=== PATIENT | male | born 1980 | race Caucasian/White ===

== ENCOUNTER 2024-01-23 08:01 | Emergency (ER) | payer BC, SELFPAY ==
[2024-01-23 08:11] VITALS: BP 151/106; PULSE 91; RESP 16; TEMP 37.1; O2SAT 100
--- NOTE | 2024-01-23 08:12 | ED.DENTAL ---
HPI - Dental/Oral General Chief complaint: Dental/Oral Stated complaint: swelling on left side face History of Present Illness HPI Narrative: Patient presents with right-sided tooth pain. No trouble swallowing no drooling slight facial swelling. No fever no body aches has not seen a dentist in quite some time. Related Data Home Medications Medication Instructions Recorded Confirmed clonazepam 0.5 mg tablet mg 01/23/24 escitalopram oxalate 20 mg tablet mg 01/23/24 oxcarbazepine 300 mg tablet mg 01/23/24 quetiapine 100 mg tablet mg 01/23/24 quetiapine 400 mg tablet mg 01/23/24 Allergies Allergy/AdvReac Type Severity Reaction Status Date / Time Penicillins Allergy Fever Verified 01/23/24 08:11 Review of Systems Review of Systems: CONSTITUTIONAL: Denies fever, chills, or sweats. EYES: Denies visual changes, redness, or discharge. ENT: Denies rhinorrhea, congestion, sore throat, or otalgia. CARDIOVASCULAR: Denies chest pain, palpitations, or edema. RESPIRATORY: Denies cough or dyspnea. GASTROINTESTINAL: Denies abdominal pain, nausea, vomiting, or diarrhea. GENITOURINARY: Denies dysuria or hematuria. SKIN: Denies rash or itching. MUSCULOSKELETAL: Denies back pain, joint pain, or myalgia. NEUROLOGIC: Denies headache, numbness, or weakness. PSYCHIATRIC: Denies anxiety or depression. PMFSH Comments At time of signature, agree with nursing past medical, surgical, social and family history. There is no relevant family history pertinent to the presenting complaint Exam Narrative: GENERAL: Well-appearing, well-nourished, and in no acute distress. HEAD: Normocephalic, atraumatic. EYES: PERRLA and EOMI. ENT: Nares clear, no rhinorrhea or epistaxis. Mucous membranes moist. NO JOURDAN APICAL SWELLING, TOOTH TENDER TO PALPATION. NO FACIAL SWELLING. NO TRISMUS. ABLE TO OPEN MOUTH FULLY. NO NECK SWELLING OR HORTENSIA'S ANGINA. NO ABSCESS TO BE DRAINED. no drooling, trismus, facial asymmetry or significant neck swelling tooth 18. NECK: Supple. CHEST: Clear to auscultation. No respiratory distress. HEART: Regular rate and rhythm. No murmur heard. Normal peripheral pulses. ABDOMEN: Soft, nontender, nondistended, normal active bowel sounds. EXTREMITIES: Normal range of motion. No edema. SKIN: Warm, dry, no rash. NEURO: No focal deficits. Alert and oriented x3. Sunshine Coma Scale Eye Opening: Spontaneous 4 Sunshine Coma Scale Motor: Obeys Commands 6 Sunshine Coma Scale Verbal: Oriented 5 Julee Coma Scale Total 15 Course Course Level of Care: Express Care Visit Discharge Plan Discharge Clinical Impression: Dental caries, Toothache, Dental abscess Patient Disposition: Home, Self-Care Condition: Stable Instructions: Antibiotic Form Additional Instructions: Dental discharge Avoid temperature extremes May apply heat or ice to the face Gentle brushing and flossing Antibiotic as directed Tylenol for lesser pain Use ibuprofen regularly Use the medication as provided for severe pain--caution each tablet contains 325 mg of Tylenol--the maximum dose of Tylenol is 4000 mg in 24 hours. This medication may cause constipation consider starting a laxative at this time Follow-up with the dentist as soon as possible--see the list provided -If you have any worsening of symptoms or any other concerns please go to the ED immediately. Prescriptions: New cephalexin 500 mg capsule 500 mg PO Q8H 7 Days Qty: 21 0RF No Action clonazepam 0.5 mg tablet oxcarbazepine 300 mg tablet quetiapine 100 mg tablet escitalopram oxalate 20 mg tablet quetiapine 400 mg tablet Follow-up/Referrals: PHYSICIAN NOT ON STAFF,NONSTAFF [Primary Care Provider] - Stand Alone Forms: Work/School Release IP
== END 2024-01-23 08:23 | disposition home or self-care (01) ==
PROVIDERS: Emergency Provider Nurse Practitioner Family
DX: K02.9 Dental caries, unspecified (principal); K04.7 Periapical abscess without sinus
CPT/HCPCS: 99213; G0463

== ENCOUNTER 2024-03-30 08:26 | Emergency (ER) | payer BC, SELFPAY ==
[2024-03-30 08:35] VITALS: BP 143/80; PULSE 96; RESP 16; TEMP 37; O2SAT 100
--- NOTE | 2024-03-30 08:48 | ED.DENTAL ---
HPI - Dental/Oral General Chief complaint: Dental/Oral Stated complaint: Toothache Time Seen by Provider: 03/30/24 08:44 Source: patient, RN notes reviewed and old records reviewed Mode of arrival: ambulatory Limitations: no limitations History of Present Illness HPI Narrative: Patient presents today complaining of right upper tooth swelling that he noted this morning upon waking. Denies pain to the area, but states the tooth has been broken for months. Reports that he has an appointment with a dentist in 5 days. No [id number] treatment prior to arrival. Denies fever, difficulty breathing or swallowing. Related Data Home Medications Medication Instructions Recorded Confirmed escitalopram oxalate 20 mg tablet 20 mg PO DAILY 01/23/24 03/30/24 oxcarbazepine 300 mg tablet 300 mg PO BID 01/23/24 03/30/24 quetiapine 400 mg tablet 400 mg PO BID 01/23/24 03/30/24 valproic acid 250 mg capsule 250 mg PO TID 03/30/24 03/30/24 Allergies Allergy/AdvReac Type Severity Reaction Status Date / Time Penicillins Allergy Fever Verified 01/23/24 08:11 Review of Systems Review of Systems: CONSTITUTIONAL: Denies body aches, fever, chills, or sweats. EYES: Denies visual changes, redness, or discharge. ENT: Denies rhinorrhea, congestion, sore throat, or otalgia. + tooth swelling CARDIOVASCULAR: Denies chest pain, palpitations, or edema. RESPIRATORY: Denies cough or dyspnea. GASTROINTESTINAL: Denies abdominal pain, nausea, vomiting, or diarrhea. GENITOURINARY: Denies dysuria or hematuria. SKIN: Denies rash, itching, or wounds. MUSCULOSKELETAL: Denies back pain, joint pain, or myalgia. NEUROLOGIC: Denies headache, numbness, tingling, or weakness. PSYCH: Denies depression or anxiety. [facility] Past Medical History Medical History (Updated 03/30/24 @ 08:53 by Mary Mak, CAN FILLING MACHINE OPERATOR, ) Depression Comments At time of signature, I have reviewed and agree with nursing past medical, surgical, social and family history unless otherwise noted. Please see nursing chart for further information. There is no relevant family history pertinent to the presenting complaint Exam Narrative: GENERAL: Well-appearing, well-nourished, and in no acute distress. HEAD: Normocephalic, atraumatic. EYES: EOMI. No redness or drainage. Conjunctivae normal. ENT: Mucous membranes pink and moist. Patient has gross dental decay and broken teeth throughout his mouth. He is localizing his pain around teeth 6 and 7. Tooth 7 Is broken off at the gumline. Mild swelling around the gums, but no obvious periapical abscess. No trismus. No facial swelling. No swelling of the neck. NECK: Normal AROM. CHEST: No respiratory distress. EXTREMITIES: Normal range of motion. No edema. SKIN: Warm, dry, no rash. Capillary refill normal. Normal skin turgor. NEURO: No focal deficits. Alert and oriented x3. Gait steady. PSYCH: Normal affect. No signs of depression or anxiety. Course Course Level of Care: Express Care Visit Vital Signs Vital signs: Vital Signs Temperature 98.6 F 03/30/24 08:35 Pulse Rate 96 03/30/24 08:35 Respiratory Rate 16 03/30/24 08:35 Blood Pressure 143/80 H 03/30/24 08:35 Pulse Oximetry 100 03/30/24 08:35 Oxygen Delivery Room Air 03/30/24 08:35 Temperature 98.6 F 03/30/24 08:35 Pulse Rate 96 03/30/24 08:35 Respiratory Rate 16 03/30/24 08:35 Blood Pressure 143/80 H 03/30/24 08:35 Pulse Oximetry 100 03/30/24 08:35 Oxygen Delivery Room Air 03/30/24 08:35 Reviewed MDM - Dental/Oral MDM Narrative Medical decision making narrative: Patient will be started on a course of clindamycin for his dental infection. Instructed started NSAID as well. Patient agrees with plan. Anticipatory guidance given. ED precautions given Differential Diagnosis Differential diagnosis: Likely gingival abscess, dental caries, toothache, dental abscess and fracture of tooth Critical Care Time Critical Car
== END 2024-03-30 08:56 | disposition home or self-care (01) ==
PROVIDERS: Emergency Provider Nurse Practitioner
DX: K02.9 Dental caries, unspecified (principal); F32.A Depression, unspecified
CPT/HCPCS: 99213; G0463

== ENCOUNTER 2024-11-16 19:40 | Emergency (ER) | payer BC, SELFPAY ==
--- OUTSIDE RECORDS SUMMARY | 2024-11-16 19:42 | XMS_ITS | Referral Summary ---
Author Organization [facility] [address] Address [address] [place] [id number] Care Team Providers Care Undercoat Sprayer Name Role Phone Rylie Durbin MD Primary Care Provider Allergies Active Allergy Reactions Criticality Noted Date Comments Penicillins Fever Medium 08/20/2022 Medications escitalopram (LEXAPRO) 20 mg tablet Take 20 mg by mouth daily 08/01/2022 Active OXcarbazepine (TRILEPTAL) 600 mg tablet Take 600 mg by mouth 2 (two) times a day 08/05/2022 Active QUEtiapine (SEROquel) 400 mg tablet Take 400 mg by mouth 2 (two) times a day 08/01/2022 Active ALPRAZolam (XANAX) 0.5 mg tablet Take 0.5 mg by mouth 2 (two) times a day as needed for anxiety Active Active Problems Problem Noted Date Diagnosed Date Bipolar II disorder 08/20/2022 Mixed anxiety depressive disorder 08/20/2022 Hyperlipidemia 08/20/2022 Bipolar 1 disorder 08/20/2022 Immunizations Immunization Administration Dates Next Due Influenza, Quadrivalent, Spl it, Preservative Free, Intramuscular 07/16/2021,03/31/2018 Influenza, Trivalent, IM (MDV) 04/09/2020 Influenza, Unspecified 04/11/2022 Tdap 04/09/2020 Social History Tobacco Use Types Packs/Day Years Used Date Smoking Tobacco: Every Day Vaping Smokeless Tobacco: Never Tobacco Cessation:Ready to Q uit: No; Counseling Given: Yes Comments:Former cigarettes - quit 10 yrs ago. Just vapes now AUDIT-C Answer Date Recorded Q1: How often do you have a drink containing alcohol? Never 08/20/2022 Q2: How many drinks containi ng alcohol do you have on a typical day when you are drinking? Patient does not drink Q3: How often do you have si x or more drinks on one occasion? 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 Gender Identity Not on file Sexual Orientation Not on file Last Filed Vital Signs Vital Sign Reading Time Taken Comments Blood Pressure 130/82 08/20/2022 1:43 PM BALL WORKER Pulse 86 08/20/2022 1:43 PM BALL WORKER Temperature - - Respiratory Rate - - Oxygen Saturation - - Inhaled Oxygen Concentration - - Weight 88 kg (194 lb) 08/20/2022 1:43 PM BALL WORKER Height 180.3 cm (5' 11 ) 08/20/2022 1:43 PM BALL WORKER Body Mass Index 27.06 08/20/2022 1:43 PM BALL WORKER Plan of Treatment [place] [address] [facility] [place] [address] Care Teams Undercoat Sprayer Relationship Specialty Start Date End Date Rylie Durbin MD PCP - General Family Practice 08/20/22
--- OUTSIDE RECORDS SUMMARY | 2024-11-16 19:42 | XMS_ITS ---
Author Organization [facility] Address [address] [place] [address] Care Team Providers Care Professional Tutor Name Role Phone Dr. Lashonda Cordova Primary Care Provider REASON FOR VISIT 3 month f/u Medications Medication SIG (Take, Route, Frequency, Duration) Notes Start Date End Date Status SEROquel 400 MG 1 tablet Orally twic e a day for 90 days Active Valproic Acid 250 MG 1 capsule Orally Th ree times a day for 30 days 02/02/2024 Active Lexapro 20mg 1 tablet ORAL Once a day for 90 days Active Atorvastatin Calcium 20 MG TAKE 1 TABLET BY MOUTH EVERY DAY for 30 Unknown clonazePAM 0.5 MG 1 TABLET ORALLY ONCE A DAY NEEDED FOR PANIC 7 DAYS for 7 02/15/2024 Active Social History Sex Assigned At : Social History Observation Description Sex Assigned At Male Encounters Encounter Location Date Provider Diagnosis [facility] [address] [place] [address] 06/01/2024 Lashonda Cordova Plan Of Treatment No Information Progress Notes * Igor DAMONDOB:[birth year] (43 yo M)Acc No.[id number]:06/01/2024 Progress Notes Patient: Igor GARCÍA Provider: Brijesh Cordova MD :1980 A ge:43 Y S ex:Male Date:06/01/2024 Address:[address], [address], [place], [id number] Subjective: * Chief Complaints: * 1 . 3 month f/u. * Medical History: * Medications: T aking SEROquel(QUEtiapine Fumarate) 400 MG Tablet 1 tablet Orally twice a day , Taking Lexapro(Escitalopram Oxalate) 20mg TABLET 1 tablet ORAL Once a day , Taking Valproic Acid 250 MG Capsule 1 capsule Orally Three times a day , Taking clonazePAM 0.5 MG Tablet 1 TABLET ORALLY ONCE A DAY NEEDED FOR PANIC 7 DAYS , Unknown Atorvastatin Calcium 20 MG Tablet TAKE 1 TABLET BY MOUTH EVERY DAY * Implants: Objective: * Vitals: Assessment: Plan: * Treatment: * Procedure Codes: D 9987 No Call No Show * Billing Information: * Visit Code: * Procedure Codes: D9987 No Call No Show. Care Plan Details* * Electronic signature of Dr. Lashonda Cordova MD on 11/16/2024 at 07:42 PM CDT Sign off status: Pending * Provider: Brijesh Cordova MD Date: 08/01/2023 Generated for Hemanth robles/Mariely/Sunny on: 0 11/16/2024 07:42 PM CDT
--- OUTSIDE RECORDS SUMMARY | 2024-11-16 19:42 | XMS_ITS | Patient Health Record ---
[facility] Address [address] [place] [address] Care Team Providers Care Business Instructor Name Role Phone Dr. Lashonda Cordova Primary Care Provider PrelutskVarinder goldsmith Unavailable [phone] Niall Gonzales Unavailable [phone] Allergies No Known Allergies Results Component Value Reference Range Notes CBC With Differential/Platel et Reviewed date:03/02/2024 06:47:16 AM Interpretation: Performing Lab:[facility] [place], [address] [facility], [place], Phone - [phone], Director - Jay Notes/Report: WBC 5.3 3.4-10.8 x10E3/uL RBC 3.91 4.14-5.80 x10E6/uL Hemoglobin 12.9 13.0-17.7 g/dL Hematocrit 37.7 37.5-51.0 % MCV 96 79-97 fL MCH 33.0 26.6-33.0 pg MCHC 34.2 31.5-35.7 g/dL RDW 11.9 11.6-15.4 % Platelets 305 150-450 x10E3/uL Neutrophils 63 Not Estab. % Lymphs 24 Not Estab. % Monocytes 12 Not Estab. % Eos 1 Not Estab. % Basos 0 Not Estab. % Immature Cells [employer] WORKER Neutrophils (Absolute) 3.3 1.4-7.0 x10E3/uL Lymphs (Absolute) 1.3 0.7-3.1 x10E3/uL Monocytes(Absolute) 0.6 0.1-0.9 x10E3/uL Eos (Absolute) 0.1 0.0-0.4 x10E3/uL Baso (Absolute) 0.0 0.0-0.2 x10E3/uL Immature Granulocytes 0 Not Estab. % Immature Grans (Abs) 0.0 0.0-0.1 x10E3/uL NRBC [employer] WORK[employer] Hematology Comments: [employer] WORKER Prothrombin Time (PT) (INR) Reviewed date:03/07/2024 08:22:59 AM Interpretation: Performing Lab:[facility] Phone - [phone], Director - [facility] Notes/Report: INR 1.1 0.9-1.2 Reference interval is for non-anticoagulated patients. . Suggested INR therapeutic range for Vitamin K antagonist therapy: Standard Dose (moderate intensity therapeutic range): 2.0 - 3.0 Higher intensity therapeutic range 2.5 - 3.5 Prothrombin Time 11.3 9.1-12.0 sec Valproic Acid (Depakote)(R), S Reviewed date:03/07/2024 08:22:59 AM Interpretation: Performing Lab:[facility] Phone - [phone], Director - [facility] Notes/Report: Valproic Acid (Depakote)(R),S 50 50-100 ug/m L Detection Limit = 4 <4 indicates None Detected . Toxicity may occur at levels of 100-500. Measurements of free unbound valproic acid may improve the assess- ment of clinical response. Comp. Metabolic Panel (14) Reviewed date:03/02/2024 06:47:16 AM Interpretation: Performing Lab:[facility] Phone - [phone], Director - [facility] Notes/Report: Glucose 92 70-99 mg/dL BUN 9 6-24 mg/dL Creatinine 0.96 0.76-1.27 mg/dL eGFR 100 >59 mL/min/1.73 BUN/Creatinine Ratio 9 9-20 Sodium 138 134-144 mmol/L Potassium 4.3 3.5-5.2 mmol/L Chloride 97 96-106 mmol/L Carbon Dioxide, Total 25 20-29 mmol/L Calcium 9.5 8.7-10.2 mg/dL Protein, Total 7.2 6.0-8.5 g/dL Albumin 4.7 4.1-5.1 g/dL Globulin, Total 2.5 1.5-4.5 g/dL Bilirubin, Total 0.3 0.0-1.2 mg/dL Alkaline Phosphatase 74 44-121 IU/L AST (SGOT) 19 0-40 IU/L ALT (SGPT) 19 0-44 IU/L Comp. Metabolic Panel (14) Reviewed date:01/30/2024 05:06:31 PM Interpretation: Performing Lab:[facility] [place], [address] [place] [address], Phone - [phone], Director - Jay Notes/Report: Glucose 122 70-99 mg/dL BUN 4 6-24 mg/dL Creatinine 0.90 0.76-1.27 mg/dL eGFR 108 >59 mL/min/1.73 BUN/Creatinine Ratio 4 9-20 Sodium 128 134-144 mmol/L Potassium 4.6 3.5-5.2 mmol/L Chloride 91 96-106 mmol/L Carbon Dioxide, Total 24 20-29 mmol/L Calcium 9.5 8.7-10.2 mg/dL Protein, Total 7.2 6.0-8.5 g/dL Albumin 4.8 4.1-5.1 g/dL Globulin, Total 2.4 1.5-4.5 g/dL Bilirubin, Total 0.2 0.0-1.2 mg/dL Alkaline Phosphatase 78 44-121 IU/L AST (SGOT) 15 0-40 IU/L ALT (SGPT) 11 0-44 IU/L Potassium, Urine-[id number] Reviewed date:01/23/2024 02:57:53 PM Interpretation: Performing Lab:[facility] [place], [address] [place] [address], Phone - [phone], Director - Jay Notes/Report: Potassium, Urine 37.2 Not Estab. mmol/L Creatinine, Urine Reviewed date:01/23/2024 02:57:53 PM Interpretation: Performing Lab:[facility] [place], [address] [place] [address], Phone - [phone], Director - Jay Notes/Report: Creatinine, Urine 99.5 Not Estab. mg/dL Sodium, Urine Reviewed date:01/23/2024 02:57:53 PM Interpretation: Performing Lab:[facility], [address] [place] [address], Phone - [phone], Director - Jay Notes/Report: Sodium, Urine 74 Not Estab. mmol/L Osmolality, Urine Reviewed date:01/23/2024 08:19:47 PM Interpretation: Performing Lab:[facility], [address] [facility], Phone - [phone], Director - Ralf Notes/Report: Osmolality, Urine 435 24 hr : 300 - 900 Random: 50 - 1400 After 12hr fluid restriction: >850 Hemoglobin A1C Reviewed date:01/19/2024 05:02:38 PM Interpretation: Performing Lab: Notes/Report: TSH Rfx on Abnormal to Free T4 Reviewed date:01/23/2024 03:05:29 PM Interpretation: Performing Lab:[facility], [address] [place] [address], Phone - [phone], Director - Jay Notes/Report: TSH 2.600 0.450-4.500 uIU/mL Written Authorization Reviewed date:01/23/2024 03:05:29 PM Interpretation: Performing Lab:[facility], [address] [place] [address], Phone - [phone], Director - Jay Notes/Report: Written Authorization Comment Written Authorization Received. Authorization received from Lori Aj for Link Request on 01-22-2024 Logged by Donaldo Pa Metabolic Panel (14) Reviewed date:01/23/2024 03:05:29 PM Interpretation: Performing Lab:[facility], [address] [place] [address], Phone - [phone], Director - Jay Notes/Report: Glucose 99 70-99 mg/dL BUN 3 6-24 mg/dL Creatinine 0.78 0.76-1.27 mg/dL eGFR 113 >59 mL/min/1.73 BUN/Creatinine Ratio 4 9-20 Sodium 121 134-144 mmol/L Potassium 4.5 3.5-5.2 mmol/L Chloride 85 96-106 mmol/L Carbon Dioxide, Total 24 20-29 mmol/L Calcium 9.4 8.7-10.2 mg/dL Protein, Total 7.3 6.0-8.5 g/dL Albumin 4.9 4.1-5.1 g/dL Globulin, Total 2.4 1.5-4.5 g/dL Bilirubin, Total 0.3 0.0-1.2 mg/dL Alkaline Phosphatase 85 44-121 IU/L AST (SGOT) 16 0-40 IU/L ALT (SGPT) 10 0-44 IU/L Lipid Panel Reviewed date:01/23/2024 03:05:29 PM Interpretation: Performing Lab[facility] Phone - [phone], [facility]/Report: Cholesterol, Total 232 100-199 mg/dL Triglycerides 101 0-149 mg/dL HDL Cholesterol 39 >39 mg/dL VLDL Cholesterol Magdaleno 18 5-40 mg/dL LDL Chol Calc (NIH) 175 0-99 mg/dL LDL Calc Comment: [employer] WORKER Vitamin D, 25-Hydroxy Reviewed date:01/23/2024 03:05:29 PM Interpretation: Performing Lab:[facility] [facility] Phone - [phone], [facility] Notes/Report: Vitamin D, 25-Hydroxy 21.5 30.0-100.0 ng/mL Vitamin D deficiency has been defined by the [place] of [employer] and an Endocrine Society practice guideline as a level of serum 25-OH vitamin D less than 20 ng/mL (1,2). The Endocrine Society went on to further define vitamin D insufficiency as a level between 21 and 29 ng/mL (2). 1. IOM ([place] [employer]). 2010. Dietary reference intakes for calcium and D. [place]: The National Academies Press. 2. Ester MF, Grover NC, Shanta READ, et al. Evaluation, treatment, and prevention of vitamin D deficiency: an Endocrine Society clinical practice guideline. JCEM. 2010; 96(7):1911-30. CBC With Differential/Platel et Reviewed date:01/23/2024 03:05:29 PM Interpretation: Performing Lab:[facility] Phone - [phone], [facility] Notes/Report: WBC 4.6 3.4-10.8 x10E3/uL RBC 3.88 4.14-5.80 x10E6/uL Hemoglobin 12.9 13.0-17.7 g/dL Hematocrit 37.6 37.5-51.0 % MCV 97 79-97 fL MCH 33.2 26.6-33.0 pg MCHC 34.3 31.5-35.7 g/dL RDW 13.4 11.6-15.4 % Platelets 363 150-450 x10E3/uL Neutrophils 59 Not Estab. % Lymphs 26 Not Estab. % Monocytes 13 Not Estab. % Eos 1 Not Estab. % Basos 0 Not Estab. % Immature Cells [employer] WORKER Neutrophils (Absolute) 2.7 1.4-7.0 x10E3/uL Lymphs (Absolute) 1.2 0.7-3.1 x10E3/uL Monocytes(Absolute) 0.6 0.1-0.9 x10E3/uL Eos (Absolute) 0.0 0.0-0.4 x10E3/uL Baso (Absolute) 0.0 0.0-0.2 x10E3/uL Immature Granulocytes 1 Not Estab. % Immature Grans (Abs) 0.0 0.0-0.1 x10E3/uL NRBC [employer] WORKER Hematology Comments: OPEN HEAR[employer] WORKER Vitamin B12 and Folate Reviewed date:01/23/2024 03:05:29 PM Interpretation: Performing Lab:[facility] [place], [address] [facility], Phone - [phone], Director - Jay Notes/Report: Vitamin B12 831 098-3514 pg/mL Folate (Folic Acid), Serum 5.4 >3.0 ng/mL A serum folate concentration of less than 3.1 ng/mL is considered to represent clinical deficiency. Osmolality Reviewed date:01/25/2024 01:21:02 PM Interpretation: Performing Lab:[facility] [place], [address] [place] [address], Phone - [phone], Director - Ralf Notes/Report: Osmolality 251 275-295 mOsmol/kg Reason For Referral No Information Medications Medication SIG (Take, Route, Frequency, Duration) Notes Start Date End Date Status Valproic Acid 250 MG TAKE 1 CAPSULE BY M OUTH THREE TIMES A DAY FOR 30 DAYS for 30 Active clonazePAM 0.5 MG 1 TABLET ORALLY ONCE A DAY NEEDED FOR PANIC 7 DAYS for 7 07/26/2024 Active QUEtiapine Fumarate 400 MG TAKE 1 TABLET BY MOUTH TWICE A DAY FOR 90 DAYS for 90 Active Lexapro 20mg 1 tablet ORAL Once a day for 90 days Active Atorvastatin Calcium 20 MG TAKE 1 TABLET BY MOUTH EVERY DAY for 30 Unknown Immunizations Vaccine Route Administration Date Status Comme nts Tdap (Boostrix, Adacel) IM Intramuscular 04/09/2020 Admini stered Flulaval IM Intramuscular 04/09/2020 Administered Social History Sex Assigned At : Social History Observation Description Sex Assigned At Male Problems Problem Type SNOMED Code ICD Code Onset Dates Problem Status W/U Status Risk Notes Problem 161348432 Mixed hyperlipidemia (E78.2) Active confirmed Problem Bipolar II disorder (90148979) Bipolar II disorder (F31.81) Active confirmed Problem Major depression, single episode (76999733) Major depressive disorder, single episode, unspecified (F32.9) Active confirmed Problem 28437322 Generalized anxiety disorder (F41.1) Active confirmed Problem Anxiety disorder (606500474) Anxiety disorder, unspecified (F41.9) Active confirmed Problem 39409357 Essential hypertension (I10) Active confirmed Problem 53216153 Chronic fatigue (R53.82) Active confirmed Problem 46715724 Hyponatremia (E87.1) Active confirmed Problem Hyperlipidemia (07029872) Hyperlipidemia (E78.5) Active confirmed Problem 440717488 Panic disorder [episodic paroxysmal anxiety] (F41.0) Active confirmed Problem Anxiety depression (314286005) Anxiety with depression (F41.8) Active confirmed Problem 07488326 Hypovitaminosis D (E55.9) Active confirmed Problem 135171696 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) Active confirmed Problem 40210606 Other acne (L70.8) 0 confirmed Brijesh Problem 11513859 Depressive disorder, not elsewhere classified (F32.9) 0 confirmed Brijesh Problem 114901273 Routine general medical examination at a health care facility (Z00.00) 0 confirmed Brijesh Problem 48012973 Other bipolar disorders (F31.89) 0 confirmed Brijesh Vital Signs Heart Rate 90 /min 03/01/2024 Temperature 98.1 degrees Fahrenheit 03/01/2024 Respiratory Rate 14 /min 03/01/2024 Blood pressure diastolic 88 mm Hg 03/01/2024 Oximetry 99 % 03/01/2024 Height 71 in 03/01/2024 Blood pressure systolic 128 mm Hg 03/01/2024 Weight 185.0 lbs 03/01/2024 BMI 25.8 kg/m2 03/01/2024 Encounters Encounter Location Date Provider Diagnosis [address] [address] 01/19/2024 Lashonda Cordova Bipolar II disorder F31.81 ; Essential hypertension I10 ; Mixed hyperlipidemia E78.2 ; Generalized anxiety disorder F41.1 ; Panic disorder [episodic paroxysmal anxiety] F41.0 ; Medication management Z79.899 ; Hypovitaminosis D E55.9 ; Chronic fatigue R53.82 ; Hyperglycemia R73.9 and Hyponatremia E87.[address] [address] 01/21/2024 Lashonda Cordova Dysuria R30.0 and Hyponatremia E87.[address] [address] 01/28/2024 Lashonda Cordova Hyponatremia E87.[address] [address] 03/01/2024 Lashonda Cordova Medication monitorin g encounter Z51.81 ; History of SIADH Z86.39 ; Bipolar II disorder F31.81 ; Hyponatremia E87.1 ; Generalized anxiety disorder F41.1 ; Hypovitaminosis D E55.9 and Low vitamin B12 level R79.[address] [address] 11/26/2023 Varinder Sextonluty [address] [address] [facility]/29/2023 [facility] Anxiety with depress ion F41.8 and Bipolar II disorder F31.[address] [address] 01/10/2024 Lashonda Cordova [address] [address] 01/23/2024 Lashonda Cordova [address] [address] 01/23/2024 [facility] [address] [place] [address] 01/30/2024 [facility] [address] [place] [address] 02/02/2024 [facility] [address] [place] [address] 11/29/2023 [facility] [address] [place] [address] 11/29/2023 [facility] [address] [place] [address] 12/27/2023 Niall Gonzales [facility] [address] [place] [address] 02/01/2024 [facility] [address] [place] [address] 02/01/2024 [facility] [address] [place] [address] 02/02/2024 [facility] [address] [place] [address] 02/14/2024 Lashonda [facility] Panic attacks F41.0 Assessments Encounter Date Diagnosis (ICD Code) Assessment Notes Treatment Notes Treatment Clinical Notes Section Notes 11/29/2023 Anxiety with depression (ICD-10 - F41.8) 01/19/2024 Bipolar II disorder (ICD-10 - F31.81) Patient was initally to conitnue medication regimen at end of visit. However, pt was called after having very low sodium level, like 2/2 SIADH from oxcarbazepine Will wean off oxcarbazepine and continue seroquel at this time. Will take oxcarb 150 mg twice daily x1 week then stop to wean. if pt has issues with hypomania vs depression after taking off of medication, can increase his seroquel to 400 mg TID. Recommend psychotherapy and medication options 01/19/2024 Essential hypertension (ICD-10 - I10) Elevated today. Has been elevated in the past but mild in stage i range Pt nervous on exam today Recommend pt start taking BP reading at home 3x/week Recommend DASH diet. Recommend routine cardio of 150 min/week 01/28/2024 Hyponatremia (ICD-10 - E87.1) 02/14/2024 Panic attacks (ICD-10 - F41.0) 01/21/2024 Dysuria (ICD-10 - R30.0) 03/01/2024 Medication monitoring encounter (ICD-10 - Z51.81) Will check valproic acid today. Last dose was 4 hours ago. Will recheck sodium today to ensure normalized Will check LFTs as well 03/01/2024 History of SIADH (ICD-10 - Z86.39) 01/21/2024 Hyponatremia (ICD-10 - E87.1) 03/01/2024 Bipolar II disorder (ICD-10 - F31.81) continue seroquel, valproic acid, and lexapro 01/19/2024 Mixed hyperlipidemia (ICD-10 - E78.2) Will check this today. Currently off of atorvastatin as was not working. May need to restart pending level. 11/29/2023 Bipolar II disorder (ICD-10 - F31.81) 01/19/2024 Generalized anxiety disorder (ICD-10 - F41.1) Continue lexapro, will consider d/c depending on sodium level 03/01/2024 Hyponatremia (ICD-10 - E87.1) 03/01/2024 Generalized anxiety disorder (ICD-10 - F41.1) Doing well with this, less anxious. 01/19/2024 Panic disorder [episodic paroxysmal anxiety] (ICD-10 - F41.0) Will send in limited rx for clonazepam. PDMP checked without concerns. 01/19/2024 Medication management (ICD-10 - Z79.899) labs today d/t lapse in monitoring 03/01/2024 Hypovitaminosis D (ICD-10 - E55.9) continue vitamin D high dose once weekly x12 weeks. 01/19/2024 Hypovitaminosis D (ICD-10 - E55.9) will test today. 03/01/2024 Low vitamin B12 level (ICD-10 - R79.89) Continue vitamin b12 1000 mcg once daily x12 weeks, then start multivitamin daily 01/19/2024 Chronic fatigue (ICD-10 - R53.82) 01/19/2024 Hyperglycemia (ICD-10 - R73.9) a1c today. 01/19/2024 Hyponatremia (ICD-10 - E87.1) Severe. Will stop oxcarb likely d/t med induced SIADH 03/01/2024 Other Continue DASH diet Continue blood pressure 2x/week. Bring in blood pressure cuff next visit. Let me know if any issues with meds. Will test electrolytes today. Continue high dose vitamin D once weekly x12 weeks, then start multivitamin. Continue vitamin b12 1000 mcg daily x12 weeks, then start multivitamin Return to clinic in 3 months Plan Of Treatment No Information Insurance Providers Payer Name Payer Address Payer Phone Subscriber Number Group Number Insured Name Patient Relationship to Insured Coverage Start Date Coverage End Date [facility] [address] [place] [phone] [id number] Igor Lou Self - patient is the insured
--- OUTSIDE RECORDS SUMMARY | 2024-11-16 19:42 | XMS_ITS ---
[facility] Address [address] [place] [address] Care Team Providers Care Circuit Recorder Name Role Phone Dr. Lashonda Cordova Primary Care Provider Allergies No Known Allergies Results Component Value Reference Range Notes CBC With Differential/Platel et Reviewed date:03/02/2024 06:47:16 AM Interpretation: Performing Lab:[facility] [place], [address] [facility], Phone - [phone], Director - Jay Notes/Report: WBC 5.3 3.4-10.8 [...] Basos 0 Not Estab. % Immature Cells HYDRAULIC MECHANIC Neutrophils (Absolute) 3.3 1.4-7.0 x10E3/uL Lymphs (Absolute) 1.3 0.7-3.1 x10E3/uL Monocytes(Absolute) 0.6 0.1-0.9 x10E3/uL Eos (Absolute) 0.1 0.0-0.4 x10E3/uL Baso (Absolute) 0.0 0.0-0.2 x10E3/uL Immature Granulocytes 0 Not Estab. % Immature Grans (Abs) 0.0 0.0-0.1 x10E3/uL NRBC HYDRAULIC MECHANIC Hematology Comments: HYDRAULIC MECHANIC Prothrombin Time (PT) (INR) Reviewed date:03/07/2024 08:22:59 AM Interpretation: Performing Lab:[facility], Phone - [phone], Director - [facility] Notes/Report: INR 1.1 0.9-1.2 Reference interval is for non-anticoagulated patients. . Suggested INR therapeutic range for Vitamin K antagonist therapy: Standard Dose (moderate intensity therapeutic range): 2.0 - 3.0 Higher intensity therapeutic range 2.5 - 3.5 Prothrombin Time 11.3 9.1-12.0 sec Valproic Acid (Depakote)(R), S Reviewed date:03/07/2024 08:22:59 AM Interpretation: Performing Lab:[facility] [place], [facility], Phone - [phone], Director - [facility] Notes/Report: Valproic Acid (Depakote)(R),S 50 50-100 ug/m L Detection Limit = 4 <4 indicates None Detected . Toxicity may occur at levels of 100-500. Measurements of free unbound valproic acid may improve the assess- ment of clinical response. Comp. Metabolic Panel (14) Reviewed date:03/02/2024 06:47:16 AM Interpretation: Performing Lab:[facility] [place], [address] [facility], Phone - [phone], Director - [facility] Notes/Report: Glucose 92 70-99 mg/dL BUN [...] 0-40 IU/L ALT (SGPT) 19 0-44 IU/L REASON FOR VISIT 6 week f/u Medications Medication SIG (Take, Route, Frequency, Duration) Notes Start Date End Date Status clonazePAM 0.5 MG 1 TABLET ORALLY ONCE A DAY NEEDED FOR PANIC 7 DAYS for 7 02/15/2024 Active Atorvastatin Calcium 20 MG TAKE 1 TABLET BY MOUTH EVERY DAY for 30 Unknown SEROquel 400 MG 1 tablet Orally twic e a day for 90 days Active Lexapro 20mg 1 tablet ORAL Once a day for 90 days Active Ergocalciferol 1.25 MG (83328 UT) 1 capsule Orally once a week for 84 days 01/23/2024 04/16/2024 Active Valproic Acid 250 MG 1 capsule Orally Th ree times a day for 30 days 02/02/2024 Active Social History Sex Assigned At : Social History Observation Description Sex Assigned At Male Problems Problem Type SNOMED Code ICD Code Onset Dates Problem Status W/U Status Risk Notes Problem 393258480 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) Active confirmed Problem 63217789 Hyponatremia (E87.1) Active confirmed Vital Signs Temperature 98.1 degrees Fahrenheit 03/01/20 24 Blood pressure systolic 128 mm Hg 03/01/20 24 Blood pressure diastolic 88 mm Hg 024 Heart Rate 90 /min 03/01/2024 Respiratory Rate 14 /min 03/01/2024 Height 71 in 03/01/2024 Weight 185.0 lbs 03/01/2024 BMI 25.8 kg/m2 03/01/2024 Oximetry 99 % 03/01/2024 Encounters Encounter Location Date Provider Diagnosis [address] [address] 03/01/2024 Lashonda Cordova Medication monitorin g encounter Z51.81 ; History of SIADH Z86.39 ; Bipolar II disorder F31.81 ; Hyponatremia E87.1 ; Generalized anxiety disorder F41.1 ; Hypovitaminosis D E55.9 and Low vitamin B12 level R79.89 Assessments Encounter Date Diagnosis (ICD Code) Assessment Notes Treatment Notes Treatment Clinical Notes Section Notes 03/01/2024 Medication monitoring encounter (ICD-10 - Z51.81) Will check valproic acid today. Last dose was 4 hours ago. Will recheck sodium today to ensure normalized Will check LFTs as well 03/01/2024 History of SIADH (ICD-10 - Z86.39) 03/01/2024 Bipolar II disorder (ICD-10 - F31.81) continue seroquel, valproic acid, and lexapro 03/01/2024 Hyponatremia (ICD-10 - E87.1) 03/01/2024 Generalized anxiety disorder (ICD-10 - F41.1) Doing well with this, less anxious. 03/01/2024 Hypovitaminosis D (ICD-10 - E55.9) continue vitamin D high dose once weekly x12 weeks. 03/01/2024 Low vitamin B12 level (ICD-10 - R79.89) Continue vitamin b12 1000 mcg once daily x12 weeks, then start multivitamin daily 03/01/2024 Other Continue DASH diet Continue blood pressure 2x/week. Bring in blood pressure cuff next visit. Let me know if any issues with meds. Will test electrolytes today. Continue high dose vitamin D once weekly x12 weeks, then start multivitamin. Continue vitamin b12 1000 mcg daily x12 weeks, then start multivitamin Return to clinic in 3 months Plan Of Treatment Treatment Notes Assessment Notes Medication monitoring encounter Will check valproic acid today. Last dose was 4 hours ago. Will recheck sodium today to ensure normalized Will check LFTs as well Bipolar II disorder continue seroquel, v alproic acid, and lexapro Generalized anxiety disorder Doing well with this, less anxious. Hypovitaminosis D continue vitamin D h igh dose once weekly x12 weeks. Low vitamin B12 level Continue vitamin b 12 1000 mcg once daily x12 weeks, then start multivitamin daily Other Continue DASH diet Continue blood pressure 2x/week. Bring in blood pressure cuff next visit. Let me know if any issues with meds. Will test electrolytes today. Continue high dose vitamin D once weekly x12 weeks, then start multivitamin. Continue vitamin b12 1000 mcg daily x12 weeks, then start multivitamin Return to clinic in 3 months Next Appt Details Follow Up: 3 Months, Reason: Progress Notes * Igor DAMONDOB:[birth year] (43 yo M)Acc No.[id number]:03/01/2024 Progress Notes Patient: Igor GARCÍA Provider: Brijesh Cordova MD :1980 A ge:43 Y S ex:Male Date:03/01/2024 Address:[address] [place] [address], [facility], [id number] Subjective: * Chief Complaints: * 6 week f/u * HPI: G eneral: Bipolar Type II -mood stabilization is good -Seroquel is going well -valproic acid is working well (new); pt is able to take 3x daily -Denies issues at this time -Denies SI/HI/delusions/paranoia SIADH -d/t oxcarbmazepine -levels at 121>>128>>?; will recheck today -Notes tremor is gone and pt feels more awake -No acute concerns Weight loss -Has been working on diet -Down 11ish pounds Elevated Blood Pressure -Has been limiting salt -Taking BP at home, running in 130-140/80-90 range -Not currently on anything for high BP -Prefers lifestyle changes Vitamin B12/Vitamin D low. * ROS: F ull review of systems is negative unless otherwise stated in the HPI. * Medical History: * Surgical History: * Hospitalization/Major Diagno stic Procedure: * Medications: T akingSEROquel(QUEtiapine Fumarate) 400 MG Tablet 1 tablet Orally twice a day Lexapro(Escitalopram Oxalate) 20mg TABLET 1 tablet ORAL Once a day Ergocalciferol 1.25 MG (80169 UT) Capsule 1 capsule Orally once a week , stop date 04/16/2024Valproic Acid 250 MG Capsule 1 capsule Orally Three times a day clonazePAM 0.5 MG Tablet 1 TABLET ORALLY ONCE A DAY NEEDED FOR PANIC 7 DAYS Taking SEROquel(QUEtiapine Fumarate) 400 MG Tablet 1 tablet Orally twice a day Taking Lexapro(Escitalopram Oxalate) 20mg TABLET 1 tablet ORAL Once a day Taking Ergocalciferol 1.25 MG (57512 UT) Capsule 1 capsule Orally once a week , stop date 04/16/2024Taking Valproic Acid 250 MG Capsule 1 capsule Orally Three times a day Taking clonazePAM 0.5 MG Tablet 1 TABLET ORALLY ONCE A DAY NEEDED FOR PANIC 7 DAYS UnknownAtorvastatin Calcium 20 MG Tablet TAKE 1 TABLET BY MOUTH EVERY DAY Medication List reviewed and reconciled with the patientUnknown Atorvastatin Calcium 20 MG Tablet TAKE 1 TABLET BY MOUTH EVERY DAY Medication List reviewed and reconciled with the patient * Allergies: N .K.D.A.no[Allergies Verified] * Implants: Objective: * Vitals: T emp:98.1F, HR:90/min, RR:14/min, BP:128/88mm Hg, Ht: 71 in, Wt:185.0lbs, Wt-k.91 kg, BMI:25.8Index, Oxygen sat %:99%, Ht-cm: 180.34 cm. * Examination: G eneral Examination: GENERAL APPEARANCE: i n no acute distress, well developed, well nourished. HEAD: n ormocephalic, atraumatic. EYES: e xtraocular movement intact. EARS: e xternal ears normal. NOSE: n gi patent, no lesions. ORAL CAVITY: m ucosa moist. THROAT: c lear. NECK/THYROID: f ull range of motion. SKIN: n o suspicious lesions, warm and dry. HEART: n o murmurs, regular rate and rhythm. LUNGS: c lear to auscultation bilaterally. CHEST: n ormal excursion. ABDOMEN: n ormal, bowel sounds present, soft, nontender, nondistended. MUSCULOSKELETAL: n ormal. EXTREMITIES: n o clubbing, cyanosis, or edema. NEUROLOGIC: n onfocal. Assessment: * Assessment: 1. M edication monitoring encounter - Z51.81 (Primary) 2 . H istory of SIADH - Z86.39 3 . B ipolar II disorder - F31.81 4 . H yponatremia - E87.1 5 . G eneralized anxiety disorder - F41.1 6 . H ypovitaminosis D - E55.9 7 . L ow vitamin B12 level - R79.89 Plan: * Treatment: Value Reference Range P rothrombin Time 11.3 9.1-12.0 - sec * I NR 1.1 0.9-1.2 - * Lashonda Cordova 03/07/2024 08: 19:51 AM CDT >normal clotting factors.This lab was reviewed by Dr. Lashonda Cordova on 03/07/2024 at 08:22 AM CDT ?LAB: Valproic Acid (Depakote)(R),S (Collection Date & Time - 03/01/2024 04:39 PM)* Value Reference Range V alproic Acid (Depakote)(R),S 50 50-100 - ug /mL * Lashonda Cordova 03/07/2024 08: 21:45 AM CDT >Valproic acid in normal range.This lab was reviewed by Dr. Lashonda Cordova on 03/07/2024 at 08:22 AM CDT ?LAB: CBC With Differential/Platelet (Collection Date & Time - 03/01/2024 04:39 PM)* Value Reference Range H ematology Comments: HYDRAULIC MECHANIC - * B aso (Absolute) 0.0 0.0-0.2 - x10E3/uL * I mmature Granulocytes 0 Not Estab. - % * I mmature Grans (Abs) 0.0 0.0-0.1 - x10E3/uL * N RBC HYDRAULIC MECHANIC - * E os (Absolute) 0.1 0.0-0.4 - x10E3/uL * H emoglobin 12.9 L 13.0-17.7 - g/dL * M onocytes(Absolute) 0.6 0.1-0.9 - x10E3/uL * R BC 3.91 L 4.14-5.80 - x10E6/uL * W BC 5.3 3.4-10.8 - x10E3/uL * H ematocrit 37.7 37.5-51.0 - % * M CV 96 79-97 - fL * M CH 33.0 26.6-33.0 - pg * M CHC 34.2 31.5-35.7 - g/dL * R DW 11.9 11.6-15.4 - % * I mmature Cells HYDRAULIC MECHANIC - * N eutrophils 63 Not Estab. - % * L ymphs 24 Not Estab. - % * M onocytes 12 Not Estab. - % * E os 1 Not Estab. - % * B asos 0 Not Estab. - % * L ymphs (Absolute) 1.3 0.7-3.1 - x10E3/uL * N eutrophils (Absolute) 3.3 1.4-7.0 - x10E3/uL * P latelets 305 150-450 - x10E3/uL * Lashonda Cordova 03/02/2024 06: 45:58 AM CDT >mild anemia, can check iron next time. JG ?LAB: Comp. Metabolic Panel (14) (Collection Date & Time - 03/01/2024 04:39 PM)* Value Reference Range A LT (SGPT) 19 0-44 - IU/L * A ST (SGOT) 19 0-40 - IU/L * B ilirubin, Total 0.3 0.0-1.2 - mg/dL * G lobulin, Total 2.5 1.5-4.5 - g/dL * A lbumin, Serum 4.7 4.1-5.1 - g/dL * P rotein, Total, Serum 7.2 6.0-8.5 - g/dL * C alcium, Serum 9.5 8.7-10.2 - mg/dL * C hloride, Serum 97 96-106 - mmol/L * P otassium, Serum 4.3 3.5-5.2 - mmol/L * S odium, Serum 138 134-144 - mmol/L * B UN/Creatinine Ratio 9 9-20 - * C reatinine, Serum 0.96 0.76-1.27 - mg/dL * B UN 9 6-24 - mg/dL * G lucose, Serum 92 70-99 - mg/dL * C arbon Dioxide, Total 25 20-29 - mmol/L * A lkaline Phosphatase, S 74 44-121 - IU/L * e GFR 100 >59 - mL/min/1.73 * Lashonda Cordova 03/02/2024 06: 44:59 AM CDT >sodium level is normal!!! Notes: Will check valproic acid today. Last dose was 4 hours ago. Will recheck sodium today to ensure normalized Will check LFTs as well??2.?History of SIADH?LAB: Prothrombin Time (PT) (INR) (Collection Date & Time - 03/01/2024 04:39 PM)* Value Reference Range P rothrombin Time 11.3 9.1-12.0 - sec * I NR 1.1 0.9-1.2 - * Lashonda Cordova 03/07/2024 08: 19:51 AM CDT >normal clotting factors.This lab was reviewed by Dr. Lashonda Cordova on 03/07/2024 at 08:22 AM CDT ?LAB: Valproic Acid (Depakote)(R),S (Collection Date & Time - 03/01/2024 04:39 PM)* Value Reference Range V alproic Acid (Depakote)(R),S 50 50-100 - ug /mL * Lashonda Cordova 03/07/2024 08: 21:45 AM CDT >Valproic acid in normal range.This lab was reviewed by Dr. Lashonda Cordova on 03/07/2024 at 08:22 AM CDT ?LAB: CBC With Differential/Platelet (Collection Date & Time - 03/01/2024 04:39 PM)* Value Reference Range H ematology Comments: HYDRAULIC MECHANIC - * B aso (Absolute) 0.0 0.0-0.2 - x10E3/uL * I mmature Granulocytes 0 Not Estab. - % * I mmature Grans (Abs) 0.0 0.0-0.1 - x10E3/uL * N RBC HYDRAULIC MECHANIC - * E os (Absolute) 0.1 0.0-0.4 - x10E3/uL * H emoglobin 12.9 L 13.0-17.7 - g/dL * M onocytes(Absolute) 0.6 0.1-0.9 - x10E3/uL * R BC 3.91 L 4.14-5.80 - x10E6/uL * W BC 5.3 3.4-10.8 - x10E3/uL * H ematocrit 37.7 37.5-51.0 - % * M CV 96 79-97 - fL * M CH 33.0 26.6-33.0 - pg * M CHC 34.2 31.5-35.7 - g/dL * R DW 11.9 11.6-15.4 - % * I mmature Cells HYDRAULIC MECHANIC - * N eutrophils 63 Not Estab. - % * L ymphs 24 Not Estab. - % * M onocytes 12 Not Estab. - % * E os 1 Not Estab. - % * B asos 0 Not Estab. - % * L ymphs (Absolute) 1.3 0.7-3.1 - x10E3/uL * N eutrophils (Absolute) 3.3 1.4-7.0 - x10E3/uL * P latelets 305 150-450 - x10E3/uL * Lashonda Cordova 03/02/2024 06: 45:58 AM CDT >mild anemia, can check iron next time. JG ?LAB: Comp. Metabolic Panel (14) (Collection Date & Time - 03/01/2024 04:39 PM)* Value Reference Range A LT (SGPT) 19 0-44 - IU/L * A ST (SGOT) 19 0-40 - IU/L * B ilirubin, Total 0.3 0.0-1.2 - mg/dL * G lobulin, Total 2.5 1.5-4.5 - g/dL * A lbumin, Serum 4.7 4.1-5.1 - g/dL * P rotein, Total, Serum 7.2 6.0-8.5 - g/dL * C alcium, Serum 9.5 8.7-10.2 - mg/dL * C hloride, Serum 97 96-106 - mmol/L * P otassium, Serum 4.3 3.5-5.2 - mmol/L * S odium, Serum 138 134-144 - mmol/L * B UN/Creatinine Ratio 9 9-20 - * C reatinine, Serum 0.96 0.76-1.27 - mg/dL * B UN 9 6-24 - mg/dL * G lucose, Serum 92 70-99 - mg/dL * C arbon Dioxide, Total 25 20-29 - mmol/L * A lkaline Phosphatase, S 74 44-121 - IU/L * e GFR 100 >59 - mL/min/1.73 * Lashonda Cordova 03/02/2024 06: 44:59 AM CDT >sodium level is normal!!! 3.?Bipolar II disorder?LAB: Prothrombin Time (PT) (INR) (Collection Date & Time - 03/01/2024 04:39 PM)* Value Reference Range P rothrombin Time 11.3 9.1-12.0 - sec * I NR 1.1 0.9-1.2 - * Lashonda Cordova 03/07/2024 08: 19:51 AM CDT >normal clotting factors.This lab was reviewed by Dr. Lashonda Cordova on 03/07/2024 at 08:22 AM CDT ?LAB: Valproic Acid (Depakote)(R),S (Collection Date & Time - 03/01/2024 04:39 PM)* Value Reference Range V alproic Acid (Depakote)(R),S 50 50-100 - ug /mL * Lashonda Cordova 03/07/2024 08: 21:45 AM CDT >Valproic acid in normal range.This lab was reviewed by Dr. Lashonda Cordova on 03/07/2024 at 08:22 AM CDT ?LAB: CBC With Differential/Platelet (Collection Date & Time - 03/01/2024 04:39 PM)* Value Reference Range H ematology Comments: HYDRAULIC MECHANIC - * B aso (Absolute) 0.0 0.0-0.2 - x10E3/uL * I mmature Granulocytes 0 Not Estab. - % * I mmature Grans (Abs) 0.0 0.0-0.1 - x10E3/uL * N RBC HYDRAULIC MECHANIC - * E os (Absolute) 0.1 0.0-0.4 - x10E3/uL * H emoglobin 12.9 L 13.0-17.7 - g/dL * M onocytes(Absolute) 0.6 0.1-0.9 - x10E3/uL * R BC 3.91 L 4.14-5.80 - x10E6/uL * W BC 5.3 3.4-10.8 - x10E3/uL * H ematocrit 37.7 37.5-51.0 - % * M CV 96 79-97 - fL * M CH 33.0 26.6-33.0 - pg * M CHC 34.2 31.5-35.7 - g/dL * R DW 11.9 11.6-15.4 - % * I mmature Cells HYDRAULIC MECHANIC - * N eutrophils 63 Not Estab. - % * L ymphs 24 Not Estab. - % * M onocytes 12 Not Estab. - % * E os 1 Not Estab. - % * B asos 0 Not Estab. - % * L ymphs (Absolute) 1.3 0.7-3.1 - x10E3/uL * N eutrophils (Absolute) 3.3 1.4-7.0 - x10E3/uL * P latelets 305 150-450 - x10E3/uL * Lashonda Cordova 03/02/2024 06: 45:58 AM CDT >mild anemia, can check iron next time. JG ?LAB: Comp. Metabolic Panel (14) (Collection Date & Time - 03/01/2024 04:39 PM)* Value Reference Range A LT (SGPT) 19 0-44 - IU/L * A ST (SGOT) 19 0-40 - IU/L * B ilirubin, Total 0.3 0.0-1.2 - mg/dL * G lobulin, Total 2.5 1.5-4.5 - g/dL * A lbumin, Serum 4.7 4.1-5.1 - g/dL * P rotein, Total, Serum 7.2 6.0-8.5 - g/dL * C alcium, Serum 9.5 8.7-10.2 - mg/dL * C hloride, Serum 97 96-106 - mmol/L * P otassium, Serum 4.3 3.5-5.2 - mmol/L * S odium, Serum 138 134-144 - mmol/L * B UN/Creatinine Ratio 9 9-20 - * C reatinine, Serum 0.96 0.76-1.27 - mg/dL * B UN 9 6-24 - mg/dL * G lucose, Serum 92 70-99 - mg/dL * C arbon Dioxide, Total 25 20-29 - mmol/L * A lkaline Phosphatase, S 74 44-121 - IU/L * e GFR 100 >59 - mL/min/1.73 * Lashonda Cordova 03/02/2024 06: 44:59 AM CDT >sodium level is normal!!! Notes: continue seroquel, valproic acid, and lexapro??4.?Hyponatremia?LAB: Prothrombin Time (PT) (INR) (Collection Date & Time - 03/01/2024 04:39 PM)* Value Reference Range P rothrombin Time 11.3 9.1-12.0 - sec * I NR 1.1 0.9-1.2 - * Lashonda Cordova 03/07/2024 08: 19:51 AM CDT >normal clotting factors.This lab was reviewed by Dr. Lashonda Cordova on 03/07/2024 at 08:22 AM CDT ?LAB: Valproic Acid (Depakote)(R),S (Collection Date & Time - 03/01/2024 04:39 PM)* Value Reference Range V alproic Acid (Depakote)(R),S 50 50-100 - ug /mL * Lashonda Cordova 03/07/2024 08: 21:45 AM CDT >Valproic acid in normal range.This lab was reviewed by Dr. Lashonda Cordova on 03/07/2024 at 08:22 AM CDT ?LAB: CBC With Differential/Platelet (Collection Date & Time - 03/01/2024 04:39 PM)* Value Reference Range H ematology Comments: HYDRAULIC MECHANIC - * B aso (Absolute) 0.0 0.0-0.2 - x10E3/uL * I mmature Granulocytes 0 Not Estab. - % * I mmature Grans (Abs) 0.0 0.0-0.1 - x10E3/uL * N RBC HYDRAULIC MECHANIC - * E os (Absolute) 0.1 0.0-0.4 - x10E3/uL * H emoglobin 12.9 L 13.0-17.7 - g/dL * M onocytes(Absolute) 0.6 0.1-0.9 - x10E3/uL * R BC 3.91 L 4.14-5.80 - x10E6/uL * W BC 5.3 3.4-10.8 - x10E3/uL * H ematocrit 37.7 37.5-51.0 - % * M CV 96 79-97 - fL * M CH 33.0 26.6-33.0 - pg * M CHC 34.2 31.5-35.7 - g/dL * R DW 11.9 11.6-15.4 - % * I mmature Cells HYDRAULIC MECHANIC - * N eutrophils 63 Not Estab. - % * L ymphs 24 Not Estab. - % * M onocytes 12 Not Estab. - % * E os 1 Not Estab. - % * B asos 0 Not Estab. - % * L ymphs (Absolute) 1.3 0.7-3.1 - x10E3/uL * N eutrophils (Absolute) 3.3 1.4-7.0 - x10E3/uL * P latelets 305 150-450 - x10E3/uL * Lashonda Cordova 03/02/2024 06: 45:58 AM CDT >mild anemia, can check iron next time. JG ?LAB: Comp. Metabolic Panel (14) (Collection Date & Time - 03/01/2024 04:39 PM)* Value Reference Range A LT (SGPT) 19 0-44 - IU/L * A ST (SGOT) 19 0-40 - IU/L * B ilirubin, Total 0.3 0.0-1.2 - mg/dL * G lobulin, Total 2.5 1.5-4.5 - g/dL * A lbumin, Serum 4.7 4.1-5.1 - g/dL * P rotein, Total, Serum 7.2 6.0-8.5 - g/dL * C alcium, Serum 9.5 8.7-10.2 - mg/dL * C hloride, Serum 97 96-106 - mmol/L * P otassium, Serum 4.3 3.5-5.2 - mmol/L * S odium, Serum 138 134-144 - mmol/L * B UN/Creatinine Ratio 9 9-20 - * C reatinine, Serum 0.96 0.76-1.27 - mg/dL * B UN 9 6-24 - mg/dL * G lucose, Serum 92 70-99 - mg/dL * C arbon Dioxide, Total 25 20-29 - mmol/L * A lkaline Phosphatase, S 74 44-121 - IU/L * e GFR 100 >59 - mL/min/1.73 * Lashonda Cordova 03/02/2024 06: 44:59 AM CDT >sodium level is normal!!! 5.?Generalized anxiety disorder? Notes: Doing well with this, less anxious.??6.?Hypovitaminosis D? Notes: continue vitamin D high dose once weekly x12 weeks.??7.?Low vitamin B12 level? Notes: Continue vitamin b12 1000 mcg once daily x12 weeks, then start multivitamin daily??8.?Others? Notes: Continue DASH diet Continue blood pressure 2x/week. Bring in blood pressure cuff next visit. Let me know if any issues with meds. Will test electrolytes today. Continue high dose vitamin D once weekly x12 weeks, then start multivitamin. Continue vitamin b12 1000 mcg daily x12 weeks, then start multivitamin Return to clinic in 3 months?? * Procedure Codes: G 2211 Complex e/m visit add [id number] VENIPUNCT, ROUTINE*G8417 BMI >=30 CALCUATE [id number] DOC PT HAS ACTIV DX DEPR/BIPOLR [id number] Pt scrn tbco id as non [id number] TOBACCO [id number] PREHTN/HTN BP DOC INDCD F/U DOC * Follow Up: 3 Months * Billing Information: * Visit Code: 46393 Office Visit- Est Pt.- Level 4. Modifiers: 25 * Procedure Codes: G2211 Complex e/[place]. [address] VENIPUNCT, ROUTINE*. G8417 BMI >=30 CALCUATE W/FOLLOWUP. G9717 DOC PT HAS ACTIV DX DEPR/BIPOLR D/O. G9903 Pt scrn tbco id as non user. 1036F TOBACCO NON-USER. G8950 PREHTN/HTN BP DOC INDCD F/U DOC. Care Plan Details* * Sign off status: Completed true * Provider: Brijesh Cordova MD Date: 0 03/01/2024 Generated for Hemanth robles/Faxing/eTransmitting on: 0 11/16/2024 07:41 PM CDT History and Physical Notes * HPI (History of Present Illness) Category Sub-Category Detail Notes Category Not es General Bipolar Type II -mood stabilization is good -Seroquel is going well -valproic acid is working well (new); pt is able to take 3x daily -Denies issues at this time -Denies SI/HI/delusions/paranoia SIADH -d/t oxcarbmazepine -levels at 121>>128>>?; will recheck today -Notes tremor is gone and pt feels more awake -No acute concerns Weight loss -Has been working on diet -Down 11ish pounds Elevated Blood Pressure -Has been limiting salt -Taking BP at home, running in 130-140/80-90 range -Not currently on anything for high BP -Prefers lifestyle changes Vitamin B12/Vitamin D low Examination Category Sub-Category Detail Notes Category Not es General Examination GENERAL APPEARANCE: in no ac [place] distress, well developed, well nourished HEAD: normocephalic, atrau matic EYES: extraocular movement intact EARS: external ears normal NOSE: nares patent, no les ions THROAT: clear NECK/THYROID: full range of motion HEART: no murmurs, regular rate and rhythm CHEST: normal excursion LUNGS: clear to auscultatio n bilaterally ABDOMEN: normal, bowel sounds present, soft, nontender, nondistended NEUROLOGIC: nonfocal SKIN: no suspicious lesion s, warm and dry EXTREMITIES: no clubbing, cyanosi s, or edema MUSCULOSKELETAL: normal ORAL CAVITY: mucosa moist
--- OUTSIDE RECORDS SUMMARY | 2024-11-16 19:42 | XMS_ITS ---
Author Organization [facility] Address [address] [place] [address] Care Team Providers Care [employer] Equipment Operator Name Role Phone Dr. Lashonda Cordova Primary Care Provider [phone] REASON FOR VISIT New Refill Request Medications Medication SIG (Take, Route, Fr equency, Duration) Notes Start Date End Date Status clonazePAM 0.5 MG 1 TABLET ORALLY ONCE A DAY NEEDED FOR PANIC 7 DAYS for 7 02/15/2024 Ac tive Social History Sex Assigned At : Social History Observation Description Sex Assigned At Male Encounters Encounter Location Date Provider Diagnosis [facility] [address] [place] [address] 02/14/2024 Lashonda Cordova Panic attacks F41.0 Assessments Encounter Date Diagnosis (ICD Code) Assessment Notes Treatment Notes Treatment Clinical Notes Section Notes 02/14/2024 Panic attacks (ICD-10 - F41.0) Plan Of Treatment Medication Medication Name Sig Start Date Stop Date Notes clonazePAM 0.5 MG 1 TABLET ORALLY ONCE A DAY NEEDED FOR PANIC 7 DAYS for 7 02/15/2024 Progress Notes * Igor DAMONDOB:[birth year] (43 yo M)Acc No.[id number]:02/14/2024 Patient: Cheyenne NATALIA Igor :1980 A ge:43 Y S ex:Male Address:[address], [place], [address] * Refills Refill clonazePAM Tablet, 0.5 MG, 7 Tablet, 1 TABLET ORALLY ONCE A DAY NEEDED FOR PANIC 7 DAYS, 7, Refills=0 * true * Date: Generated for Hemanth robles/Mariely/Sunny on: 0 11/16/2024 07:41 PM CDT
--- OUTSIDE RECORDS SUMMARY | 2024-11-16 19:42 | XMS_ITS | Clinical Summary ---
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 Name Role Phone Unavailable Primary Care Provider Unavailabl e Social History Tobacco Use Types Packs/Day Years Used Date Smoking Tobacco: Never Assessed Sex and Gender Information Value Date Recorded Sex Assigned at Not on file Legal Sex Male 8:31 PM CDT Gender Identity Not on file Sexual Orientation Not on file Last Filed Vital Signs Vital Sign Reading Time Taken Comments Blood Pressure 118/62 08/28/2013 1:21 PM CHEMISTRY TECHNOLOGIST Pulse 83 08/28/2013 1:21 PM CHEMISTRY TECHNOLOGIST Temperature - - Respiratory Rate - - Oxygen Saturation - - Inhaled Oxygen Concentration - - Weight 61.2 kg (135 lb) 08/28/2013 1:21 PM CHEMISTRY TECHNOLOGIST Height 182.9 cm (6') 08/28/2013 1:21 PM CHEMISTRY TECHNOLOGIST Body Mass Index 18.31 08/28/2013 1:21 PM CHEMISTRY TECHNOLOGIST Plan of Treatment Health Maintenance Due Date Last Done Comments Annual Physical 12/21/1982 Hepatitis C 12/21/1997 DTaP, Tdap and Td Vaccines ( 1 - Tdap) 12/21/1998 Hepatitis B Vaccines (1 of 3 - 19+ 3-dose series) 12/21/1998 COVID-19 Vaccine (2023-2 5 season) 2024 HPV Vaccines Aged Out No longer eligi ble based on patient's age to complete this topic Meningococcal B Vaccine Aged Out No l onger eligible based on patient's age to complete this topic Meningococcal Vaccine Aged Out No kathryn ron eligible based on patient's age to complete this topic Pneumococcal Vaccine: Pediat rics (0 to 5 Years) and At-Risk Patients (6 to 49 Years) Aged Out No longer eligible b ased on patient's age to complete this topic RSV Immunizations Under 20 Months Aged Out No longer eligible based on patient's age to complete this topic
--- OUTSIDE RECORDS SUMMARY | 2024-11-16 19:42 | XMS_ITS | Clinical Summary ---
Author Organization [facility] [address] [place] Address [address] [place] [id number] Care Team Providers Care Orthopedic Rn Name Role Phone Rylie Durbin MD Primary [...] (MDV) 04/09/2020 Influenza, Unspecified 04/11/2022 Tdap 04/09/2020 Surgical History Surgery Date Site/Laterality Comments COLONOSCOPY W/ POLYPECTOMY WISDOM TOOTH EXTRACTION Medical History Medical History Date Comments Anxiety 1999 Depression 1999 Bipolar disorder (HCC) Family History Medical History Relation Name Comments No Known Problems Brother 1 No Known Problems Brother 2 Memory loss Father Breast cancer Mother Colon cancer Neg Hx Relation Name Status Comments Brother 1 Alive Brother 2 Alive Father Mother Social History Tobacco Use Types Packs/Day Years [...] on file Legal Sex Male 7:05 PM GOLD TOOLER Gender Identity Not on file Sexual Orientation Not on file Obstetrics History Last Filed Vital Signs Vital Sign Reading Time Taken Comments Blood Pressure 130/82 08/20/2022 1:43 PM GOLD TOOLER Pulse 86 08/20/2022 1:43 PM GOLD TOOLER Temperature - - Respiratory Rate - - Oxygen Saturation - - Inhaled Oxygen Concentration - - Weight 88 kg (194 lb) 08/20/2022 1:43 PM GOLD TOOLER Height 180.3 cm (5' 11 ) 08/20/2022 1:43 PM GOLD TOOLER Body Mass Index 27.06 08/20/2022 1:43 PM GOLD TOOLER Plan of Treatment Health Maintenance Due Date Last Done Comments Hepatitis C Screening 1979 Varicella Vaccines (1 of 2 - 13+ 2-dose series) 12/21/1992 Hepatitis B Screening 12/21/1997 Pneumococcal vaccine <65 (1 of 2 - PCV) 12/21/1998 Depression Screening 08/20/2023 08/20/2022 Regular Well Visit/Exam 18-64 08/20/2023 08/20/2022 Covid-19 Vaccine ( season) 2024 07/16/2021, 11/14/2020, 10/24/2020 Influenza Vaccine (#1) 2024 2, 07/16/2021, 04/09/2020, Additional history exists DTaP/Tdap/Td Vaccine (2 - Td or Tdap) 04/09/2030 04/09/2020 HPV Vaccines Aged Out No longer eligi ble based on patient's age to [place] [id number] [place] [id number] Care Teams Orthopedic Rn Relationship Specialty Start Date End Date Rylie Durbin MD PCP - General Family Practice 08/20/22
[2024-11-16 20:10] VITALS: BP 128/84; PULSE 90; RESP 20; TEMP 36.9; O2SAT 100
--- NOTE | 2024-11-16 21:22 | ED_ITS ---
HPI - Skin/Abscess/Foreign Bdy General Chief complaint: Skin/Abscess/Foreign Body Stated complaint: Insect Bite/Left Leg Time Seen by Provider: 11/16/24 21:20 Source: patient Mode of arrival: ambulatory Limitations: no limitations History of Present Illness HPI narrative: 43-year-old male who presents to [facility] with with pimple type lesion to the posterior aspect of his left knee which he noted yesterday. Patient reports he has noticed increased redness and swelling around lesion with tenderness. He has not taken any kaag-typ-dmmrnlt medication or applied any ointment to site. Patient has 1 cm center type lesion with 3 cm surrounding redness, no drainage noted MD complaint: abscess/boil (behind left knee) Onset (ago): day(s) (yesterday) Severity scale (1-10): 3 Treatments prior to arrival: none Related Data Home Medications ?Medication ?Instructions ?Recorded ?Confirmed ?Last Taken ?Type escitalopram oxalate 20 mg tablet 20 mg PO DAILY 01/23/24 03/30/24 Unknown History quetiapine 400 mg tablet 400 mg PO BID 01/23/24 03/30/24 Unknown History valproic acid 250 mg capsule 250 mg PO TID 03/30/24 03/30/24 Unknown History clonazepam 0.5 mg tablet mg 11/16/24 Unknown History Allergies Allergy/AdvReac Type Severity Reaction Status Date / Time Penicillins Allergy Fever Verified 11/16/24 21:19 Review of Systems Review of Systems: CONSTITUTIONAL: Denies fever, chills, or sweats. CARDIOVASCULAR: Denies chest pain, palpitations, or edema. RESPIRATORY: Denies cough or dyspnea. GASTROINTESTINAL: Denies abdominal pain, nausea, vomiting SKIN: Reports redness and swelling around 1cm pustular lesion behind left knee Denies purulent drainage, numbness, pain beyond proportion MUSCULOSKELETAL: Denies myalgia. NEUROLOGIC: Denies headache, numbness All systems reviewed & are unremarkable except as noted in HPI and below PMFSH Past Medical History Medical History (Updated 11/18/24 @ 22:47 by Paz Frausto NP) Dental abscess Bipolar 1 disorder Depression Social History Social History (Updated 11/18/24 @ 22:42 by Paz Frausto NP) Smoking status: Current every day smoker Tobacco type: e-cigarettes/vaping Alcohol intake: current Alcohol use details: soial Substance use type: does not use Living arrangements: with family Gender identity (if verbalized by the patient): Male Comments At time of signature, agree with nursing past medical, surgical, social and family history. There is no relevant family history pertinent to the presenting complaint Exam Narrative: GENERAL: Well-appearing, well-nourished, and in no acute distress. HEAD: Normocephalic, atraumatic. EYES: PERRLA and EOMI. ENT: Nares clear, no rhinorrhea or epistaxis. Mucous membranes moist. NECK: Supple. no lymphadenopathy CHEST: Clear to auscultation. No respiratory distress.SAO2 100% on room air HEART: Regular rate and rhythm. No murmur heard. Normal peripheral pulses. ABDOMEN: Soft, nontender, nondistended, normal active bowel sounds. EXTREMITIES: Normal range of motion. No edema. SKIN: Warm, dry. Erythema, induration, tenderness,to 1cm central pimple type of lesion with surrounding redness total 3cm., no drainage or acute warmth, . No vesicles, bullae, necrosis, ecchymosis,or crepitus noted NEURO: No focal deficits. Alert and oriented x3. Course Course Emergency Course: Patient is aware of diagnosis, understands and agrees to treatment plan. Anticipatory guidance given. Patient agrees to follow-up as directed and is aware of reasons to seek care at the emergency department. Portions of this record may have been created with voice recognition software Level of Care: Express Care Visit Vital Signs Vital signs: Vital Signs Temperature 36.9 C 11/16/24 20:10 Pulse Rate 90 11/16/24 20:10 Respiratory Rate 11/16/24 20:10 Blood Pressure 128/84 11/16/24 20:10 Pulse Oximetry 100 11/16/24 20:10 Oxygen Delivery Room Air 11/16/24 20:10 Temperature 36.9 C 11/16/24 20:10 Pulse Rate 90 11/16/24 20:10 Respiratory Rate 20 11/16/24 20:10 Blood Pressure 128/84 11/16/24 20:10 Pulse Oximetry 100 11/16/24 20:10 Oxygen Delivery Room Air 11/16/24 20:10 Reviewed MDM - Skin/Abscess/Foreign Bdy MDM Narrative Medical decision making narrative: Does not appear at this time to be erythema multiforme, bullous, SJS, TEN; no evidence at this time to suggest RMSF, endocarditis or Lyme disease; patient looks well, nontoxic and is tolerating oral intake; no neurologic signs or symptoms; no headache, photophobia or neck pain; afebrile; appropriate for initial outpatient treatment; discussed the importance of follow-up, patient agrees. Patient does not have history of penetrating trauma, laceration, blunt trauma, recent surgery, immunosuppression, malignancy, obesity, alcoholism, corticosteroid use. Question cellulitis, necrotizing soft tissue infection, abscess. Differential Diagnosis Differential diagnosis: Likely abscess of skin or subcutaneous tissue, celluli tis, insect bites and contact dermatitis Medical Records Attestation: I reviewed the patient's medical records. Critical Care Time Critical Care Time Critical Care Time: No Discharge Plan Discharge Clinical Impression: Abscess of skin or subcutaneous tissue Qualifiers: Site of cutaneous abscess: extremity Site of cutaneous abscess of extremity: lower extremity Laterality: left Qualified Code(s): L02.416 - Cutaneous abscess of left lower limb Patient Disposition: Home Condition: Stable Instructions: Antibiotic Form, Abscess (ED) Additional Instructions: cleanse with liquid Dial soap or Hibiclens soap twice daily rinse apply mupirocin ointment if any drainage cover watch for increasing infection--redness, swelling, drainage Tylenol or ibuprofen for any pain or fever follow up with PCP in 7-10 days for a wound check recheck if develop fever, chills, increasing symptom Go to the ER if your symptoms become worse of if ANY new symptoms develop complete all doses oral antibiotics as ordered make sure you take with food If your symptoms persist, change or worsen significantly before you can contact your personal physician then please, without delay, go to the emergency department for further evaluation. Follow-up with PCP in 7-10 days or sooner if needed Follow up with PCP soon in regards to your blood pressure which is elevated above threshold for referral. Blood pressure above 120/80 may indicate pre- hypertension.128/84 Patient Language: Montserratian Prescriptions: New clindamycin HCl [Cleocin HCl] 300 mg capsule 300 mg PO Q8H 10 Days Qty: 30 0RF Rx Instructions: take with food mupirocin [Centany] 2 % ointment 1 applic topical BID Qty: 22 0RF No Action valproic acid 250 mg capsule 250 mg PO TID clonazepam 0.5 mg tablet escitalopram oxalate 20 mg tablet 20 mg PO DAILY quetiapine 400 mg tablet 400 mg PO BID Follow-up/Referrals: UNKNOWN,DOCTOR [Primary Care Provider] - Time of Disposition: 21:27 Quality Julee Coma Scale Eyes: Open Verbal: Oriented and Alert Motor: Follows Commands [place] Coma Total Score: 15
== END 2024-11-16 21:35 | disposition home or self-care (01) ==
PROVIDERS: Emergency Provider Registered Nurse
DX: L02.416 Cutaneous abscess of left lower limb (principal); F17.290 Nicotine dependence, other tobacco product, uncomplicated; F31.9 Bipolar disorder, unspecified
CPT/HCPCS: 99213; G0463